=== PATIENT | female | born 1940 | race Caucasian/White ===

== ENCOUNTER 2022-06-15 04:40 | Inpatient (IN) | payer MEDICARE, OTHER ==
[~2022-06-15] VITALS: Ht 157.5 cm; Wt 68.0 kg
[2022-06-15] VITALS (8 sets, daily range): BP systolic 110–140; BP diastolic 47–60; PULSE 57–77; TEMP 97.4–99.4
[2022-06-15] MEDS ORDERED: HCTZ12.5TAB PO (08:03)
[2022-06-15] MEDS ORDERED: PEPCID 20MG TAB20 MG PO (08:05)
[2022-06-15] MEDS ORDERED: ZOCOR 20MG20 MG PO (08:05)
[2022-06-15] MEDS ORDERED: TENORMIN 5050 MG/TAB PO (08:06)
[2022-06-15] MEDS ORDERED: ASPIRIN 81M81 MG/TA2 PO (08:06)
[2022-06-15] MEDS ORDERED: NORVASC 5MG5 MG/TAB PO (08:06)
[2022-06-15] MEDS ORDERED: EPA FISH OIL1 SGL PO (08:08)
[2022-06-15] MEDS ORDERED: AZO-STANDARD95 MG PO (08:08)
[2022-06-15] MEDS ORDERED: ANTIVERT 12.512.5 MG PO (08:09)
[2022-06-15] MEDS ORDERED: REFRESH PLUS 00.4 M1 OP (08:11)
[2022-06-15] MEDS ORDERED: RESTORIL 1515 MG/CAP PO (08:11)
[2022-06-15] MEDS ORDERED: OCUVITE1 TA1 PO (08:12)
[2022-06-15] MEDS ORDERED: OYSTERCAL-D 5001 TAB PO (08:13)
--- NOTE | 2022-06-15 09:00 | NUR ---
Pt admitted to room 348. No complaints of pain while at rest, only with movement. Pt aware that she is to not have anything to eat or drink at this time. Informed her the physician will be around to see her as well as the surgeon. 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
--- NOTE | 2022-06-15 09:12 | NUR ---
Yoke Presser met with patient to discuss discharge planning. Patient stated she did not get a lot of rest last night as she went to the [facility] ER today and then had to come to [place]. Patient lives in [place] with her , Cesar (ph#[phone]) and sees Dr. Anguiano for primary care. Patient obtains medications from [facility] and does not use any DME. Patient is independent with ADLS and plans to return home at time of discharge. Patient advised her , Cesar is her DPOA-HC. Discharge Plan: Home
--- NOTE | 2022-06-15 13:00 | NUR ---
Pt has been doing well today. Tolerating the clear liquids with no complaints. Not much of an appetite. Pt is getting up to the room independently. No needs, will continue to monitor
--- NOTE | 2022-06-15 14:50 | NUR ---
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 Pt appreciated the visit Recommendation: tongue and groove machine setter will follow up as needed
[2022-06-15 16:58] LABS: PH 5.5 (5.0-8.5); URINE APPEARANCE Clear (CLEAR/HAZY); URINE BLOOD TRACE-INTACT (NEGATIVE); URINE COLOR Yellow (YELLOW); URINE GLUCOSE Negative (NEGATIVE); URINE KETONE Negative (NEGATIVE); URINE NITRATE Negative (NEGATIVE); URINE PROTEIN(semi-quant) Negative (NEGATIVE); URINE UROBILINOGEN 0.2 E.U/dL (0.2-1.0)
--- NOTE | 2022-06-15 17:00 | NUR ---
Dr Rodriguez in to see pt, new orders wrote, consent signed. Pt stating pain is starting to increase, will get PRN pain medication
[2022-06-15 17:03] LABS: COLLECTION METHOD CLEAN CATCH
[2022-06-15 17:31] LABS: SQUAMOUS EPITHELIAL 0-2 /hpf (0-10); URINE BACTERIA None Seen /hpf (NONE SEEN); URINE RBC 0-2 /hpf (0-2)
--- NOTE | 2022-06-15 18:00 | NUR ---
Pt have complaints of feeing nauseated. Emesis bag given to her. Pt is dry heaving some. Will give nausea medication. Pt does have family in the room
[2022-06-16] VITALS (15 sets, daily range): BP systolic 125–155; BP diastolic 50–78; PULSE 57–69; TEMP 97.5–98.9
--- NOTE | 2022-06-16 07:06 | NUR ---
BEDSIDE REPORT DONE ORDER. PATIENT RESTING IN BED WITH CALL LIGHT IN REACH
[2022-06-16 09:09] LABS: BASO % 0.3 % (0.0-2.0); EOS % 0.4 % (0.0-4.0); GRAN # 7.9 K/mm3 (1.4-6.5); GRAN % 73.1 % (42.2-75.2); HEMATOCRIT 40.2 % (37.0-47.0); HEMOGLOBIN 13.1 g/dl (12.5-16.0); LYMPH # 2.1 K/mm3 (1.2-3.4); LYMPH % 19.4 % (20.0-51.0); MEAN CELL VOLUME 86 fl (80.0-100.0); MEAN CORPUSCULAR HEMOGLOBIN 28 pg (27-31); MEAN CORPUSCULAR HGB CONC 33 g/dl (33.0-37.0); MEAN PLATELET VOLUME 9.4 fl (7.4-10.4); MONO # 0.7 K/mm3 (0.1-0.6); MONO % 6.4 % (1.7-9.3); PLATELET COUNT 264 K/mm3 (130-400); RED BLOOD COUNT 4.67 M/mm3 (4.10-5.30); REDCELL DISTRIBUTION WIDTH-CV 13.6 % (11.5-14.5)
[2022-06-16 09:28] LABS: ALBUMIN 3.3 gm/dL (3.4-4.8); BILIRUBIN,TOTAL 0.9 mg/dL (0.2-1.2); CALCIUM 9.6 mg/dL (8.4-10.2); CREATININE, serum 0.8 mg/dL (0.57-1.11); POTASSIUM 3.2 mmol/L (3.5-4.5); TOTAL PROTEIN 6.7 gm/dL (6.2-8.1)
--- NOTE | 2022-06-16 11:52 | NUR ---
ASSESSMENT DONE ORDER. PATIENT ALERT AND ORIENTED X 4 WITH NO MEMORY ISSUE. PATIENT WILL BE HAVING A COLO DONE TODAY WITH BOWEL CLEAR GREEN. NO SOLID STOOL NOTED. PATIENT DRANK ALL HER PREP.PATIENT ABLE TO GET UP AND DOWN FROM BED.
--- NOTE | 2022-06-16 11:59 | NUR ---
SPOKE WITH AMBROSIO AT SURGICAL AREA, CONSENT SIGN AND PATIENT READY FOR THE COLO. PATIENT WENT DOWN AT 1150 WITH SURGICAL NURSE. LR WAS STARTED
--- NOTE | 2022-06-16 15:24 | NUR ---
PATIENT DOING GOOD TODAY AFTER HER PROCEDURE. PATIENT BLOOD PRESSURE WAS IN THE LOW 150. AM MEDICATIONW GIVE ORDER. EXPLAIN TO PATIENT THAT HER BLOOD PRESSURE WILL DECREASE. EXPLAIN ABOUT THE LR AND POTASSIUM
--- NOTE | 2022-06-16 18:27 | NUR ---
PATIENT HAS BEEN RESTING SINCE HER COLOSCOPY TODAY. PATIENT WENT TO THE BATHROOM AND TOOK ALL HER POTASSIUM ORDER. INFORM PATIENT THAT BLOOD WORK WILL BE DONE TOMORROW AM . PAYTON STATED THAT SHE HAS NO PAIN AT THIS TIME..
--- NOTE | 2022-06-16 21:00 | NUR ---
PT IN BED. IS ALERT AND ORIENTED X4. DENIES PAIN. IS INDEPENDENT IN ROOM. HS MEDS GIVEN AT THIS TIME, TAKES WITHOUT PROBLEM. HAS INT TO LFA, FLUSHES WELL. WILL MONITOR FOR CHANGES.
--- NOTE | 2022-06-17 | NUR ---
IV ANTIBIOTIC INFUSING WITHOUT PROBLEM. PT DENIES NEEDS AT THIS TIME.
[2022-06-17 00:03] VITALS: BP 139/56; PULSE 59; TEMP 97.6
[2022-06-17 00:30] VITALS: PULSE 59; TEMP 97.6
[2022-06-17 03:36] VITALS: BP 150/56; PULSE 62; TEMP 98
[2022-06-17 07:42] VITALS: BP 161/57; PULSE 56; TEMP 98.3
--- NOTE | 2022-06-17 07:42 | NUR ---
Pt doing okay this morning, no complaints of pain. Pt has ordered breakfast. No needs at this time, will continue to monitor
[2022-06-17 08:10] LABS: BASO % 0.4 % (0.0-2.0); EOS # 0.2 K/mm3 (0.0-0.7); EOS % 1.6 % (0.0-4.0); GRAN # 6.2 K/mm3 (1.4-6.5); GRAN % 67.4 % (42.2-75.2); HEMATOCRIT 39.1 % (37.0-47.0); HEMOGLOBIN 12.7 g/dl (12.5-16.0); LYMPH # 2.1 K/mm3 (1.2-3.4); LYMPH % 22.7 % (20.0-51.0); MEAN CELL VOLUME 87 fl (80.0-100.0); MEAN CORPUSCULAR HEMOGLOBIN 28 pg (27-31); MEAN CORPUSCULAR HGB CONC 33 g/dl (33.0-37.0); MEAN PLATELET VOLUME 9.6 fl (7.4-10.4); MONO # 0.7 K/mm3 (0.1-0.6); MONO % 7.6 % (1.7-9.3); PLATELET COUNT 227 K/mm3 (130-400); RED BLOOD COUNT 4.49 M/mm3 (4.10-5.30); REDCELL DISTRIBUTION WIDTH-CV 13.4 % (11.5-14.5)
[2022-06-17 08:33] VITALS: PULSE 56; TEMP 98.3
[2022-06-17 08:45] LABS: ALBUMIN 2.9 gm/dL (3.4-4.8); BILIRUBIN,TOTAL 0.6 mg/dL (0.2-1.2); CALCIUM 9.7 mg/dL (8.4-10.2); CREATININE, serum 0.74 mg/dL (0.57-1.11); POTASSIUM 3.7 mmol/L (3.5-4.5)
[2022-06-17] MEDS ORDERED: TYLENOL 500MG500 MG PO (09:03)
[2022-06-17] MEDS ORDERED: CIPRO 500MG TA500 MG PO (09:04)
[2022-06-17] MEDS ORDERED: ZOFRAN 4MG T4 MG/TAB PO (09:05)
[2022-06-17] MEDS ORDERED: FLAGYL500 MG PO (09:05)
[2022-06-17] MEDS ORDERED: ROXICODONE 55 MG/TAB PO (09:06)
--- NOTE | 2022-06-17 09:45 | NUR ---
reviewed discharge instructions with pt and family. Discussed making follow up appointment on Sunday as well as new prescriptions. All questions answered. INT removed. Informed pt to use call light when she is ready to be wheeled out.
--- NOTE | 2022-06-17 13:15 | NUR ---
Combat Systems Engineer rounds: Combat Systems Engineer visit attempted. Housekeeping was in room. Patient had been discharged.
== END 2022-06-17 10:20 | disposition home or self-care (01) | DRG 872 ==
LOC: COL.ER 04:40 → SURG 06:17
PROVIDERS: Surgery; ADMIT Internal Medicine
PROC: 0DJD8ZZ Inspection of Lower Intestinal Tract, Via Natural or Artificial Opening Endoscopic (ICD-10-PCS; principal; 2022-06-16 12:15)
DX: A41.9 Sepsis, unspecified organism (principal); I10 Essential (primary) hypertension; K21.9 Gastro-esophageal reflux disease without esophagitis; E78.5 Hyperlipidemia, unspecified; K52.9 Noninfective gastroenteritis and colitis, unspecified; G47.00 Insomnia, unspecified; K29.70 Gastritis, unspecified, without bleeding; K57.30 Diverticulosis of large intestine without perforation or abscess without bleeding; Z79.82 Long term (current) use of aspirin; Z88.2 Allergy status to sulfonamides; Z23 Encounter for immunization
CPT/HCPCS: C9113; J2270; J2405; J2543; J2550; J2704; J7030; J7120; Q9967